=== PATIENT | female | born 1935 | race Caucasian/White ===

== ENCOUNTER → 2016-02-22 | Outpatient (CLI) | payer MEDICARE, BC ==
[2016-02-22 14:43] LABS: ALT 49 U/L (9-52); AST 35 U/L (14-36); Cholesterol 159 mg/dL (<200); HDL Cholesterol 71 mg/dL (40-60); Triglycerides 96 mg/dL (<150)
== END | disposition home or self-care (01) ==
LOC: LABWHC1 13:30
PROVIDERS: ATTEND Internal Medicine Cardiovascular Disease
DX: E78.2 Mixed hyperlipidemia (principal)
CPT/HCPCS: 36415; 80061; 84450; 84460

== ENCOUNTER → 2016-10-25 | Outpatient (CLI) | payer MEDICARE, BC ==
[2016-10-25 11:38] LABS: Potassium 4.3 mmol/L (3.5-5.1); Total Bilirubin 0.9 mg/dL (0.2-1.3); Total Protein 7.7 g/dL (6.3-8.2); Uric Acid 7.8 mg/dL (3.7-7.4)
[2016-10-25 16:14] LABS: Basophils % (A) 1 %; CH 32.4; CHCM 34.7; Eosinophils # (A) 0.1 k/uL (0-0.7); Eosinophils % (A) 2 %; HCT 39.7 % (34.0-46.0); HDW 2.65; HGB 14.1 gm/dL (11.4-16.0); Luc # (Auto) 0.13; Luc % (Auto) 2; Lymphocytes # (A) 2.6 k/uL (1.0-4.8); Lymphocytes % (A) 42 %; MCH 33.4 pg (25.0-35.0); MCHC 35.6 g/dL (31.0-37.0); MCV 93.9 fL (80.0-100.0); Mean Platelet Volume 7.8; Monocytes # (A) 0.4 k/uL (0-1.0); Monocytes % (A) 6 %; Neutrophils # (A) 2.9 k/uL (1.3-7.7); Neutrophils % (A) 47 %; RBC 4.23 m/uL (3.80-5.40); WBC 6.2 k/uL (3.8-10.6); WBC (Perox) 6.08
[2016-10-25 18:58] LABS: Hemoglobin A1C 6.7 % (4.2-6.1)
== END | disposition home or self-care (01) ==
LOC: LABWHC1 10:18
PROVIDERS: ATTEND Internal Medicine Critical Care Medicine
DX: E55.9 Vitamin D deficiency, unspecified (principal); M10.9 Gout, unspecified; I10 Essential (primary) hypertension; E11.9 Type 2 diabetes mellitus without complications; I25.10 Atherosclerotic heart disease of native coronary artery without angina pectoris
CPT/HCPCS: 36415; 80053; 80061; 82306; 82550; 83036; 84439; 84443; 84481; 84550; 85025

== ENCOUNTER → 2016-11-23 | Outpatient (CLI) | payer MEDICARE, BC ==
[2016-11-23 12:18] LABS: Bilirubin, Delta 0.3 mg/dL (0.0-0.2); Total Bilirubin 0.5 mg/dL (0.2-1.3)
== END | disposition home or self-care (01) ==
LOC: LABWHC1 11:03
PROVIDERS: ATTEND Internal Medicine Critical Care Medicine
DX: R79.89 Other specified abnormal findings of blood chemistry (principal)
CPT/HCPCS: 36415; 80076

== ENCOUNTER 2017-10-13 17:42 | Observation (INO) | payer MEDICARE, BC ==
[2017-10-13 18:08] LABS: Basophils % (A) 0 %; Eosinophils # (A) 0.2 k/uL (0-0.7); Eosinophils % (A) 3 %; HCT 37.4 % (34.0-46.0); HGB 12.7 gm/dL (11.4-16.0); Lymphocytes # (A) 2.4 k/uL (1.0-4.8); Lymphocytes % (A) 43 %; MCH 31.2 pg (25.0-35.0); MCHC 33.9 g/dL (31.0-37.0); Mean Platelet Volume 7.2; Monocytes # (A) 0.3 k/uL (0-1.0); Monocytes % (A) 5 %; Neutrophils # (A) 2.6 k/uL (1.3-7.7); Neutrophils % (A) 47 %; Platelet Count 132 k/uL (150-450); RBC 4.07 m/uL (3.80-5.40); RDW 13.3 % (11.5-15.5); WBC 5.6 k/uL (3.8-10.6)
--- NOTE | 2017-10-13 18:11 | XR ---
EXAMINATION TYPE: XR chest 2V DATE OF EXAM: 10/13/2017 COMPARISON: 07/24/2015 HISTORY: Chest pain TECHNIQUE: Frontal and lateral views of the chest are obtained. FINDINGS: Heart is normal. Lungs are clear of consolidation. Thoracic aorta is atheromatous. There a re chest leads. Diaphragm is normal. Bony thorax appears intact. IMPRESSION: Atheromatous aorta. No active cardiopulmonary disease. Normal heart. Inspiration is impr dayron compared to old exam.
[2017-10-13 18:13] LABS: Creatine Kinase 46 U/L (30-135)
--- NOTE | 2017-10-13 18:13 | ED ---
General Adult HPI - General Chief complaint: Chest Pain Stated complaint: Chest Pain Time Seen by Provider: 10/13/17 17:43 Source: patient, EMS, RN notes reviewed, old records reviewed Mode of arrival: EMS Limitations: no limitations - History of Present Illness Initial comments: This is an 81-year-old female the ER for evasive chest pain left-sided chest pain. Patient has no known history of heart disease. CT chest. Patient took nitro with no help. Patient states pain while here in the emergency room is mildly improved she has no shortness of breath no diaphoresis and anxiety he does have history of angina high blood pressure high cholesterol. She has had prior heart catheterization although unsure of when her results. - Related Data Home Medications Medication Instructions Recorded Confirmed Aspirin EC [Ecotrin Low Dose] 81 mg PO DAILY 08/01/13 07/23/14 Atenolol [Tenormin] 50 mg PO QAM 08/01/13 07/23/14 Citalopram Hydrobromide [CeleXA] 20 mg PO HS 08/01/13 07/23/14 Cyanocobalamin [Vitamin B-12] 500 mcg PO DAILY@1200 08/01/13 07/22/14 Isosorbide Mononitrate [Imdur] 30 mg PO QAM 08/01/13 07/23/14 Magnesium Oxide [Mag-Ox] 500 mg PO DAILY 08/01/13 07/22/14 Mometasone Furoate [Nasonex Nasal 17 gm NS DAILY 08/01/13 07/22/14 [place]] Omeprazole [PriLOSEC] 20 mg PO AC-BRKFST 08/01/13 07/23/14 Ranitidine HCl [Zantac] 75 mg PO BID 08/01/13 07/23/14 Atenolol 25 mg PO HS 07/22/14 07/23/14 Cholecalciferol [Vitamin D3] 2,000 unit PO DAILY@1200 07/22/14 07/22/14 Nitroglycerin Sl Tabs [Nitrostat] 0.4 mg SL DIRECTED PRN 07/22/14 07/22/14 diphenhydrAMINE [Benadryl] 25 mg PO BID 07/22/14 07/23/14 predniSONE 20 mg PO TID 07/22/14 07/23/14 amLODIPine BESYLATE [Norvasc] 07/23/14 07/23/14 Simvastatin [Zocor] 40 mg PO HS 07/24/14 07/24/14 amLODIPine [Norvasc] 5 mg PO HS 07/24/14 07/24/14 Allergies Allergy/AdvReac Type Severity Reaction Status Date / Time doxycycline Allergy Unknown Verified 10/13/17 17:45 doxycycline calcium Allergy Unknown Verified 10/13/17 17:45 [From Vibramycin] doxycycline hyclate Allergy Unknown Verified 10/13/17 17:45 [From Vibramycin] doxycycline monohydrate Allergy Unknown Verified 10/13/17 17:45 [From Vibramycin] Iodinated Contrast- Oral and Allergy Unknown Verified 10/13/17 17:45 IV Dye [Iodinated Contrast Media - IV Dye] Penicillins Allergy Unknown Verified 10/13/17 17:45 shellfish derived Allergy Unknown Verified 10/13/17 17:45 venom-honey bee Allergy Unknown Verified 10/13/17 17:45 [bee venom (honey bee)] MOLD Allergy Cough. Uncoded 10/13/17 17:45 NASAL CONGESTION. Review of Systems ROS Statement: Those systems with pertinent positive or pertinent negative responses have been documented in the HPI. ROS Other: All systems not noted in ROS Statement are negative. Past Medical History Past Medical History: Coronary Artery Disease (CAD), Chest Pain / Angina, GERD/ Reflux, Hyperlipidemia, Hypertension, Thyroid Disorder Additional Past Medical History / Comment(s): Diverticulitis History of Any Multi-Drug Resistant Organisms: None Reported Past Surgical History: Tubal Ligation Additional Past Surgical History / Comment(s): RIGHT Carotid endarterectomy 1999 TUBE IMPLANTS. D&C. PARTIAL THYROIDECTOMY. CATARACTS BILATERAL. LEFT SALPINGOOPHERECTOMY. Past Anesthesia/Blood Transfusion Reactions: No Reported Reaction Past Psychological History: No Psychological Hx Reported Smoking Status: Former smoker Past Alcohol Use History: None Reported Past Drug Use History: None Reported - Past Family History Mother Family Medical History: No Reported History General Exam Limitations: no limitations General appearance: alert, in no apparent distress Head exam: Present: atraumatic, normocephalic, normal inspection Eye exam: Present: normal appearance, PERRL, EOMI. Absent: scleral icterus, conjunctival injection, periorbital swelling ENT exam: Present: normal exam, mucous membranes moist Neck exam: Present: normal inspection. Absent: tenderness, meningismus, lymphadenopathy Respiratory exam: Present: normal lung sounds bilaterally. Absent: respiratory distress, wheezes, rales, rhonchi, stridor Cardiovascular Exam: Present: regular rate, normal rhythm, normal heart sounds. Absent: systolic murmur, diastolic murmur, rubs, gallop, clicks GI/Abdominal exam: Present: soft, normal bowel sounds. Absent: distended, tenderness, guarding, rebound, rigid Extremities exam: Present: normal inspection, full ROM, normal capillary refill. Absent: tenderness, pedal edema, joint swelling, calf tenderness Back exam: Present: normal inspection Neurological exam: Present: alert, oriented X3, CN II-XII intact Psychiatric exam: Present: normal affect, normal mood Skin exam: Present: warm, dry, intact, normal color. 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 ] Respiratory 18 18 Rate Blood Pressure 171/75 138/62 O2 Sat by Pulse 98 98 Oximetry - Reevaluation(s) Reevaluation #1: 10/13/17 18:37 Patient is in no acute distress remains currently without chest pain Reevaluation #2: 10/13/17 18:37 Medical records thoroughly reviewed EKG Findings - EKG Comments: EKG Findings:: EKG shows sinus rhythm rate of 74, NM 1.4, QRS and QTc 461 Medical Decision Making - Medical Decision Making 82 female the ER for evaluation, positive chest pain history of chest pain CAD will admit for cardiac observation - Lab Data Result diagrams: 10/13/17 17:55 10/13/17 17:55 Lab Results 10/13/17 10/13/17 10/13/17 Range/Units 17:55 17:55 17:55 WBC 5.6 (3.8-10.6) k/uL RBC 4.07 (3.80-5.40) m/uL Hgb 12.7 (11.4-16.0) gm/dL Hct 37.4 (34.0-46.0) % MCV 92.0 (80.0-100.0) fL MCH 31.2 (25.0-35.0) pg MCHC 33.9 (31.0-37.0) g/dL RDW 13.3 (11.5-15.5) % Plt Count 132 L (150-450) k/uL Neutrophils % 47 % Lymphocytes % 43 % Monocytes % 5 % Eosinophils % 3 % Basophils % 0 % Neutrophils # 2.6 (1.3-7.7) k/uL Lymphocytes # 2.4 (1.0-4.8) k/uL Monocytes # 0.3 (0-1.0) k/uL Eosinophils # 0.2 (0-0.7) k/uL Basophils # 0.0 (0-0.2) k/uL PT (9.0-12.0) sec INR (<1.2) APTT (22.0-30.0) sec Sodium 139 (137-145) mmol/L Potassium 4.5 (3.5-5.1) mmol/L Chloride 104 (98-107) mmol/L Carbon Dioxide 26 (22-30) mmol/L Anion Gap 9 mmol/L BUN 25 H (7-17) mg/dL Creatinine 1.00 (0.52-1.04) mg/dL Est GFR (CKD-EPI)AfAm 60 (>60 ml/min/1.73 sqM) Est GFR (CKD-EPI)NonAf 52 (>60 ml/min/1.73 sqM) Glucose 140 H (74-99) mg/dL Calcium 9.1 (8.4-10.2) mg/dL Magnesium 2.2 (1.6-2.3) mg/dL Total Bilirubin 0.5 (0.2-1.3) mg/dL AST 43 H (14-36) U/L ALT 49 (9-52) U/L Alkaline Phosphatase 73 (38-126) U/L Total Creatine Kinase 46 (30-135) U/L CK-MB (CK-2) 0.5 (0.0-2.4) ng/mL CK-MB (CK-2) Rel Index 1.1 Troponin I <0.012 (0.000-0.034) ng/mL Total Protein 6.9 (6.3-8.2) g/dL Albumin 4.1 (3.5-5.0) g/dL Lipase 123 (23-300) U/L 10/13/17 Range/Units 17:55 WBC (3.8-10.6) k/uL RBC (3.80-5.40) m/uL Hgb (11.4-16.0) gm/dL Hct (34.0-46.0) % MCV (80.0-100.0) fL MCH (25.0-35.0) pg MCHC (31.0-37.0) g/dL RDW (11.5-15.5) % Plt Count (150-450) k/uL Neutrophils % % Lymphocytes % % Monocytes % % Eosinophils % % Basophils % % Neutrophils # (1.3-7.7) k/uL Lymphocytes # (1.0-4.8) k/uL Monocytes # (0-1.0) k/uL Eosinophils # (0-0.7) k/uL Basophils # (0-0.2) k/uL PT 9.9 (9.0-12.0) sec INR 1.0 (<1.2) APTT 21.6 L (22.0-30.0) sec Sodium (137-145) mmol/L Potassium (3.5-5.1) mmol/L Chloride (98-107) mmol/L Carbon Dioxide (22-30) mmol/L Anion Gap mmol/L BUN (7-17) mg/dL Creatinine (0.52-1.04) mg/dL Est GFR (CKD-EPI)AfAm (>60 ml/min/1.73 sqM) Est GFR (CKD-EPI)NonAf (>60 ml/min/1.73 sqM) Glucose (74-99) mg/dL Calcium (8.4-10.2) mg/dL Magnesium (1.6-2.3) mg/dL Total Bilirubin (0.2-1.3) mg/dL AST (14-36) U/L ALT (9-52) U/L Alkaline Phosphatase (38-126) U/L Total Creatine Kinase (30-135) U/L CK-MB (CK-2) (0.0-2.4) ng/mL CK-MB (CK-2) Rel Index Troponin I (0.000-0.034) ng/mL Total Protein (6.3-8.2) g/dL Albumin (3.5-5.0) g/dL Lipase (23-300) U/L - Radiology Data Radiology results: report reviewed (Chest x-rays negative for acute disease), image reviewed Critical Care Time Critical Care Time: Yes Total Critical Care Time: 31 Disposition Clinical Impression: Chest pain Disposition: ADMITTED IP TO THIS HOSP Condition: Undetermined Instructions: Chest Pain (ED) Is patient prescribed a controlled substance at d/c from ED?: No Referrals: Adali Moon MD [Primary Care Provider] - 1-2 days
[2017-10-13 18:15] LABS: Albumin 4.1 g/dL (3.5-5.0); Calcium 9.1 mg/dL (8.4-10.2); Magnesium 2.2 mg/dL (1.6-2.3); Potassium 4.5 mmol/L (3.5-5.1); Total Bilirubin 0.5 mg/dL (0.2-1.3); Total Protein 6.9 g/dL (6.3-8.2)
[2017-10-13 18:19] LABS: Partial Thromboplastin Time 21.6 sec (22.0-30.0); Prothrombin Time 9.9 sec (9.0-12.0)
[2017-10-13 18:26] LABS: Creatine Kinase MB 0.5 ng/mL (0.0-2.4); Troponin I <0.012 ng/mL (0.000-0.034)
[2017-10-13] MEDS ORDERED: HEPARIN SODIUM,PORCINE 5,000 UNIT/ML 1 ML VIAL IV PRN (18:35)
[2017-10-13] MEDS ORDERED: NITROGLYCERIN SL TABS 0.4 MG TAB SUBLINGUAL PRN (18:35)
[2017-10-13] MEDS ORDERED: HEPARIN SODIUM,PORCINE 5,000 UNIT/ML 1 ML VIAL IV ONE (18:35)
[2017-10-13] MEDS ORDERED: HEPARIN SOD,PORK IN 0.45% NACL 25,000 UNIT in 0.45% NACL 1 500ML.BAG IV SCH (18:45)
[2017-10-13 20:09] VITALS: RESP 16
[2017-10-14 01:16] LABS: Mean Platelet Volume 7.3; Platelet Count 121 k/uL (150-450)
[2017-10-14 01:38] LABS: Creatine Kinase 46 U/L (30-135)
[2017-10-14 01:52] LABS: Creatine Kinase MB 0.5 ng/mL (0.0-2.4); Troponin I <0.012 ng/mL (0.000-0.034)
[2017-10-14 02:05] LABS: Cholesterol 156 mg/dL (<200); HDL Cholesterol 69 mg/dL (40-60); LDL Cholesterol,Calculated 48 mg/dL (0-99); Triglycerides 193 mg/dL (<150)
--- NOTE | 2017-10-14 08:21 | HP ---
HISTORY AND PHYSICAL CHIEF COMPLAINT: Chest pain. HISTORY OF PRESENT ILLNESS: This 82-year-old woman with a past medical history of multiple medical problems including CAD, history of chest pain, GERD, hypertension, hyperlipidemia, syncope, history of diverticulitis, being followed by Dr. Moon in the outpatient setting was complaining of chest pain while watching TV. The pain is felt in the anterior part of the chest and left-sided of the chest without radiation, without any associated symptoms and diaphoresis, sweating and palpitation. The patient apparently had some mild stress also according to her. There is no history of fever, rigors, or chills. No history of headache, loss consciousness or seizures. The troponins are negative and EKG on admission showed no acute changes also. PAST MEDICAL HISTORY: History of CAD, history of chest pain, GERD, hypertension, hyperlipidemia, hypothyroidism, history of syncope, history of tubal ligation, depression. MEDICATIONS: Prior to admission home medications include: 1. Prednisone 20 mg p.o. t.i.d. 2. Benadryl 25 mg p.o. b.i.d. 3. Norvasc 5 mg p.o. q.h.s. 4. Zocor 40 mg q.h.s. 5. Zantac 75 mg p.o. b.i.d. 6. Prilosec 20 mg a.c. breakfast. 7. Nitrostat 0.4 sublingual p.r.n. 8. Nasonex 17 g. Daily. 9. Magnesium oxide 500 mg b.i.d. 10.Imdur 30 mg q.a.m. 11.Vitamin B2 500 mcg p.o. daily. 12.Celexa 20 mg q.h.s. 13.Vitamin D3 2000. 14.Tenormin 50 mg q.a.m. 16.Aspirin 81 mg p.o. daily. ALLERGIES: DOXYCYCLINE, IODINATED CONTRAST, PENICILLIN, SHELLFISH, MOLD. FAMILY HISTORY: Family history of memory impairment. SOCIAL HISTORY: Previous history of smoking. Occasional alcohol intake. REVIEW OF SYSTEMS: ENT: No diminished vision. No diminished hearing. CARDIOVASCULAR: As mentioned earlier. RESPIRATION no cough. GI: No nausea or vomiting. no dysuria. NERVOUS SYSTEM: No numbness or weakness. ALLERGY/IMMUNOLOGY: No asthma or hay fever. MUSCULOSKELETAL: As mentioned earlier. HEMATOLOGY/ONCOLOGY: No history of anemia. ENDOCRINE: No history of diabetes or hypothyroidism. CONSTITUTIONAL: As mentioned earlier. Dermatology: Negative. Rheumatology: Negative. Psychiatry: As mentioned earlier. PHYSICAL EXAMINATION: GENERAL: The patient is alert and oriented times three. VITAL SIGNS: Pulse is 73, blood pressure 138/70, respiration 16, temperature 97.2, pulse ox 97 percent on room air. HEENT: Conjunctivae normal. Oral mucosa moist. NECK is no jugular venous distention. No carotid bruit. No lymph node enlargement. CARDIOVASCULAR: S1, S2 muffled. No S3, no S4. RESPIRATORY: Breath sounds diminished in the bases. No rhonchi. No crackles. ABDOMEN: Soft, nontender. No mass palpable. No hepatosplenomegaly. LEGS: No edema and no swelling. NERVOUS SYSTEM: Higher functions as mentioned earlier. Moves all four extremities. No focal deficits. Lymphatics: No lymph nodes palpable in the neck, axillae or groin. SKIN: no ulcer, rash or bleeding. LABS: WBC 5.2, hemoglobin 12.7, platelets 132, glucose 140, AST is 43. ASSESSMENT: 1. Chest pain possible unstable angina. 2. Mild thrombocytopenia. 3. History of coronary artery disease. 4. History of gastroesophageal reflux disease. 5. Hypertension. 6. Hyperlipidemia. 8. Hypothyroidism. 9. History of diverticulitis. 10.History of right carotid endarterectomy. 11.History of depression. 12.Remote history of nicotine dependence. RECOMMENDATIONS AND DISCUSSION: In this 82-year-old woman who presented with multiple complex medical issues, we will monitor the patient closely, continue the current medications, management and symptomatic treatment. I recommend unstable angina protocol, repeat labs. Cardiology consultation. Possible stress test. Resume the home medications. Prognosis guarded because of multiple complex medical issues. Further recommendations to follow. A copy of dictation being forwarded to Dr. Moon who is the primary physician. MMODL / IJN: [id number] / ALINE
[2017-10-14] MEDS ORDERED: CHOLECALCIFEROL 1,000 UNIT TAB PO SCH (09:00)
[2017-10-14] MEDS ORDERED: ISOSORBIDE MONONITRATE ER 30 MG TAB.ER.24H PO SCH (09:00)
[2017-10-14] MEDS ORDERED: ATORVASTATIN 80 MG TAB PO SCH (09:00)
[2017-10-14] MEDS ORDERED: ASPIRIN 325 MG TAB PO SCH (09:00)
[2017-10-14] MEDS ORDERED: NON-FORMULARY DRUG (Simvastatin [Simvastatin] 80 MG) PO SCH (09:00)
[2017-10-14] MEDS: MAGNESIUM OXIDE 400 MG TAB PO SCH (10:01)
--- NOTE | 2017-10-14 10:24 | CONS ---
CONSULTATION Mrs. Fernando is an 82-year-old female who is seen for the cardiac evaluation. This patient gives a history that she was watching the TV. She had chest discomfort. The pain was in the left precordial area. It was a dull aching pain. It was not associated with any symptoms of shortness of breath. The pain did not radiate to the arm, neck or jaw. By the time the patient came to the emergency room, pain was improved. This patient has a past history of atypical angina. She had a cardiac catheterization done a few years ago, which showed nonobstructive coronary artery disease. Patient denies any history of exertional chest discomfort. No history of prior myocardial infarction. History of hypertension, hyperlipidemia. The patient had a stress test done in our office a few months ago and that was reported to be normal. HOME MEDICATIONS: Include Tenormin, Imdur, magnesium, Nasonex, Zantac, prednisone, Norvasc 5 mg daily and simvastatin 80 mg daily. REVIEW OF THE SYSTEM: Otherwise unremarkable. PAST MEDICAL HISTORY: Includes a right carotid endarterectomy in 1998, partial thyroidectomy, bilateral cataract surgery, left salpingo-oophorectomy, history of thyroid disorder. PHYSICAL EXAMINATION: At present reveals an 82-year-old female who does not appear to be in any acute distress. The patient's blood pressure is 145/65 mmHg. HEENT examination is negative. NECK: Supple. There is no increase in jugular venous pressure. Both the carotid pulses are felt. There is no bruit. Chest is symmetrical. Heart: The PMI is not felt. First and second heart sounds are normal. There is no evidence of any murmur. Lungs are clinically clear to auscultation and percussion. ABDOMEN: Soft. Liver and spleen are not enlarged. Bowel sounds are heard. Extremities: Peripheral pulses are 2+. EKG shows normal sinus rhythm without any acute ischemic changes. Two sets of troponins are normal. IMPRESSION: Chest pain, angina, unstable angina cannot be entirely excluded. There is no evidence of any acute coronary syndrome. The various treatment options were discussed with the patient. She would like to continue with medical treatment and the patient will be ambulated. If the patient remains chest pain-free, she can be discharged home and we will follow up with a stress test as outpatient. If the stress test shows any significant abnormality, then further evaluation with a cardiac catheterization will be considered. Thank you for this consultation. SHITAL / IJN: [id number] /
--- NOTE | 2017-10-14 12:14 | P.CNPUL ---
History of Present Illness Consult date: 10/14/17 Requesting physician: Kacy Gerard Reason for consult: chest pain Chief complaint: Chest pain History of present illness: This is a very pleasant 82-year-old female patient who follows with Dr. Moon in our office as her primary care physician. She has a history of hypertension, hyperlipidemia, hypothyroidism with history of partial thyroidectomy, diverticulosis, carotid stenosis status post right carotid endarterectomy, former smoker. He is very active. Yesterday she developed some midsternal chest pain that lasted approximately 1 hour. She did try sublingual nitro which did not help. She denied any other associated symptoms. No shortness of breath, diaphoresis, nausea or vomiting. No aggravating factors, no alleviating factors. She states by the time she got to the hospital her pain had subsided and has not recurred. She did have a stress test within the past year with Dr. Mckenzie she reported as normal. Troponins are negative. EKG reveals sinus rhythm with no acute ST or T wave abnormalities. White count 5.6. Hemoglobin 12.7. Platelet count 132,000. Creatinine 1.00. She is seen today in consultation on the observation unit. She is awake and alert in no acute distress. She is feeling back to her baseline. No further pain. She is anxious to go home. She is been afebrile. Continue good O2 saturations in the high 90s on room air. She's been hemodynamically stable. Review of Systems Constitutional: Denies chills, Denies fever Eyes: denies blurred vision, denies decreased vision, denies pain Ears: deny: decreased hearing Ears, nose, mouth and throat: Denies headache, Denies sore throat Cardiovascular: Reports chest pain Respiratory: Denies cough Gastrointestinal: Denies abdominal pain, Denies diarrhea, Denies nausea, Denies vomiting Genitourinary: Denies dysuria, Denies hematuria Musculoskeletal: Denies myalgias Integumentary: Denies pruritus, Denies rash Neurological: Denies numbness, Denies weakness Psychiatric: Denies anxiety, Denies depression Endocrine: Denies fatigue, Denies weight change Hematologic/Lymphatic: Reports as per HPI Allergic/Immunologic: Reports as per HPI Past Medical History Past Medical History: Coronary Artery Disease (CAD), Chest Pain / Angina, GERD/ Reflux, Hyperlipidemia, Hypertension, Syncope, Thyroid Disorder Additional Past Medical History / Comment(s): Diverticulitis, pt stated in past she passed out in mu-ism and about a week later when shopping felt like she was going to pass out again. wore a heart monitor for a month but did'nt find anything on it. History of Any Multi-Drug Resistant Organisms: None Reported Past Surgical History: Heart Catheterization, Tubal Ligation Additional Past Surgical History / Comment(s): RIGHT Carotid endarterectomy 1999 TUBE IMPLANTS. D&C. PARTIAL THYROIDECTOMY. CATARACTS BILATERAL. LEFT SALPINGOOPHERECTOMY. Past Anesthesia/Blood Transfusion Reactions: No Reported Reaction Smoking Status: Former smoker - Past Family History Father Family Medical History: Congestive Heart Failure (CHF) Brother(s) Additional Family Medical History / Comment(s): had 7 brothers only one still alive. "1 -mi, "2 - parkinsons, "3,4 had strokes, "8 chf,"6 dm/renal faliure Sister(s) Additional Family Medical History / Comment(s): pt had 6 sisters only one still alive. 2 sisters -chf, 1 had parkinsons Mother Family Medical History: Memory Impairment Medications and Allergies Home Medications Medication Instructions Recorded Confirmed Type Isosorbide Mononitrate [Imdur] 30 mg PO QAM 08/01/13 10/13/17 History Magnesium Oxide [Mag-Ox] 500 mg PO DAILY 08/01/13 10/13/17 History Omeprazole [PriLOSEC] 20 mg PO AC-SUPPER 08/01/13 10/13/17 History Cholecalciferol (Vitamin D3) 2,000 unit PO DAILY 10/13/17 10/13/17 History [Vitamin D3] Simvastatin 80 mg PO DAILY 10/13/17 10/13/17 History Allergies Allergy/AdvReac Type Severity Reaction Status Date / Time doxycycline Allergy Unknown Verified 10/13/17 17:45 doxycycline calcium Allergy Unknown Verified 10/13/17 17:45 [From Vibramycin] doxycycline hyclate Allergy Unknown Verified 10/13/17 17:45 [From Vibramycin] doxycycline monohydrate Allergy Unknown Verified 10/13/17 17:45 [From Vibramycin] Iodinated Contrast- Oral and Allergy Unknown Verified 10/13/17 17:45 IV Dye [Iodinated Contrast Media - IV Dye] Penicillins Allergy Unknown Verified 10/13/17 17:45 shellfish derived Allergy Unknown Verified 10/13/17 17:45 venom-honey bee Allergy Unknown Verified 10/13/17 17:45 [bee venom (honey bee)] MOLD Allergy Cough. Uncoded 10/13/17 17:45 NASAL CONGESTION. Physical Exam Vitals: Vital Signs Temp Pulse Pulse Pulse Resp BP BP 10/14/17 08:00 77 60 16 10/14/17 07:12 97.6 F 60 16 145/65 10/14/17 04:06 98.4 F 72 16 109/66 10/14/17 04:00 16 10/13/17 23:52 16 10/13/17 23:30 97.7 F 81 16 93/57 10/13/17 20:39 77 73 16 10/13/17 19:45 97.3 F L 73 16 138/70 10/13/17 18:33 68 18 138/62 10/13/17 17:54 77 10/13/17 17:45 97.7 F 75 18 171/75 Pulse Ox 10/14/17 08:00 10/14/17 07:12 99 10/14/17 04:06 97 10/14/17 04:00 10/13/17 23:52 10/13/17 23:30 99 10/13/17 20:39 10/13/17 19:45 97 10/13/17 18:33 98 10/13/17 17:54 10/13/17 17:45 98 Intake and Output 10/13/17 10/14/17 10/14/17 22:59 06:59 14:59 Other: Voiding Method Toilet Toilet Toilet # Voids 1 2 Weight 62.6 kg - Constitutional General appearance: average body habitus, no acute distress - EENT Eyes: EOMI, PERRLA ENT: hearing grossly normal Ears: bilateral: normal - Neck Neck: normal ROM Carotids: left: upstroke delayed Thyroid: negative: normal size - Respiratory Respiratory: bilateral: CTA - Cardiovascular Rhythm: regular Heart sounds: normal: S1, S2 - Gastrointestinal General gastrointestinal: normal bowel sounds - Integumentary Integumentary: normal turgor - Neurologic Neurologic: CNII-XII intact - Musculoskeletal Musculoskeletal: gait normal - Psychiatric Psychiatric: A&O x's 3, appropriate affect, intact judgment & insight Results - Laboratory Findings CBC and BMP: 10/14/17 01:05 10/13/17 17:55 PT/INR, D-dimer PT 9.9 sec (9.0-12.0) 10/13/17 17:55 INR 1.0 (<1.2) 10/13/17 17:55 Abnormal lab findings: Abnormal Labs 10/13/17 10/13/17 10/13/17 17:55 17:55 17:55 Plt Count 132 L APTT 21.6 L BUN 25 H Glucose 140 H AST 43 H Triglycerides HDL Cholesterol 10/14/17 10/14/17 10/14/17 01:05 01:05 01:05 Plt Count 121 L APTT 50.6 H BUN Glucose AST Triglycerides 193 H HDL Cholesterol 69 H 10/14/17 06:58 Plt Count APTT 34.9 H BUN Glucose AST Triglycerides HDL Cholesterol - Diagnostic Findings Chest x-ray: image reviewed Assessment and Plan Assessment: Impression: #1 Acute chest pain without evidence of acute coronary syndrome. #2 Hypertension. #3 Hyperlipidemia. #4 Hypothyroidism with history of partial thyroidectomy. #5 History of diverticulitis. #7 Carotid stenosis with previous right carotid endarterectomy. #8 Remote history of smoking. Plan: The patient was seen and evaluated by Dr. Ferrell. Chest x-ray and labs are current reviewed. The patient is stable from the pulmonary standpoint and could be discharged home once cleared by cardiology. Plans are for outpatient stress testing. She will keep her scheduled appointment with Dr. Moon in our office. She is however encouraged to call sooner with any recurrence of symptoms or other questions or concerns. I, the cosigning physician, performed a history & physical examination of the patient. Lungs sounds are clear. Maintaining good O2 saturations in the 90s on room air. I discussed the assessment and plan of care with my nurse practitioner, Myra Loving. I attest to the above consultation as dictated by her. Time with Patient: Greater than 30
--- NOTE | 2017-10-14 14:09 | ECHOF ---
Referral Reason:chest pain MEASUREMENTS -------- HEIGHT: 160.0 cm WEIGHT: 62.6 kg BP: 109/55 IVSd: 1.0 cm (0.6 - 1.1) LVIDd: 3.9 cm (3.9 - 5.3) LVPWd: 1.1 cm (0.6 - 1.1) EDV(Teich): 68 ml IVSs: 1.3 cm LVIDs: 2.5 cm LVPWs: 1.3 cm %IVS Thck: 33 % ESV(Teich): 22 ml EF(Teich): 67 % %FS: 37 % SV(Teich): 45 ml LA Diam: 3.1 cm (2.7 - 3.8) RVIDd: 2.5 cm (< 3.3) LALs A4C: 4.6 cm LAAs A4C: 14.9 cm LAESV A-L A4C: 41 ml LAESV MOD A4C: 40 ml LALs A2C: 4.6 cm LAAs A2C: 12.4 cm LAESV A-L A2C: 28 ml LAESV MOD A2C: 25 ml LAESV(A-L): 34 ml LAESV Index (A-L): 20.79 ml/m Ao Diam: 2.9 cm (2.0 - 3.7) AV Cusp: 1.7 cm (1.5 - 2.6) MV E Efe: 0.70 m/s MV DecT: 350 ms MV Dec [place]: 2.0 m/s MV A Efe: 1.24 m/s MV E/A Ratio: 0.57 MV PHT: 102 ms AV Vmax: 1.21 m/s AV maxP.82 mmHg TR Vmax: 2.03 m/s TR maxP.56 mmHg RAP: 5.00 mmHg RVSP: 21.56 mmHg FINDINGS -------- Sinus rhythm. This was a technically good study. The left ventricular size is normal. There is borderline concentric left ventricular hypertrophy. Overall left ventricular systolic function is normal with, an EF between 55 - 60 %. The right ventricle is normal in size. Normal LA size by volume 22+/-6 ml/m2. The right atrium is normal in size. There is mild aortic valve sclerosis. The mitral valve leaflets are mildly thickened. Mild mitral annular calcification present. Mild tricuspid regurgitation present. Right ventricular systolic pressure is normal at < 35 mmHg. Trace/mild (physiologic) pulmonic regurgitation. The aortic root size is normal. IVC Not well visulized. There is no pericardial effusion. CONCLUSIONS -------- 1. Sinus rhythm. 2. This was a technically good study. 3. The left ventricular size is normal. 4. There is borderline concentric left ventricular hypertrophy. 5. Overall left ventricular systolic function is normal with, an EF between 55 - 60 %. 6. The right ventricle is normal in size. 7. Normal LA size by volume 22+/-6 ml/m2. 8. The right atrium is normal in size. 9. There is mild aortic valve sclerosis. 10. The mitral valve leaflets are mildly thickened. 11. Mild mitral annular calcification present. 12. Mild tricuspid regurgitation present. 13. Right ventricular systolic pressure is normal at < 35 mmHg. 14. Trace/mild (physiologic) pulmonic regurgitation. 15. The aortic root size is normal. 16. IVC Not well visulized. 17. There is no pericardial effusion. [employer]ILY [employer] ATTORNEY: Milly Downing, JETTCS
[2017-10-14 15:49] VITALS: BP 121/71; PULSE 75; TEMP 98.1
[2017-10-14] MEDS ORDERED: PANTOPRAZOLE 40 MG TABLET PO SCH (17:30)
--- NOTE | 2017-10-14 18:21 | DS ---
DISCHARGE SUMMARY FINAL DIAGNOSES: 1. Chest pain, myocardial infarction ruled out. Possibly musculoskeletal or gastroesophageal reflux disease. 2. Mild thrombocytopenia. 3. History of coronary artery disease. 4. History of gastroesophageal reflux disease. 5. Hypertension. 6. Hyperlipidemia. 7. Hypothyroidism. 8. History of diverticulitis. 9. History of right carotid endarterectomy. 10.History of depression. 11.Remote history of nicotine dependence. DISCHARGE DISPOSITION: The patient is being discharged in stable condition with guarded prognosis. HISTORY OF PRESENT ILLNESS: This 82 -year-old woman with a past medical history of multiple medical problems was admitted with chest pain, myocardial infarction ruled out. Cardiology saw the patient. Cleared the patient for discharge. Outpatient stress test is recommended. The patient is keen on going home as well. On exam, vitals are stable. Cardiovascular S1, S2. Abdomen soft. Nervous system: No focal deficits. I recommend the patient to follow with Cardiology closely. Outpatient stress test. Limited activities. Report to the ER if any recurrence of symptoms. DISCHARGE ADVICE AND MEDICATIONS: 1. Diet is cardiac diet. 2. Activity limited until followup. MEDICATIONS: 1. Vitamin D3 2000 daily. 2. Imdur 30 mg q.a.m. 3. Magnesium oxide 500 mg p.o. daily. 4. Prilosec 20 mg supper. 5. Simvastatin 80 mg p.o. daily. 6. Aspirin 81 mg p.o. daily. 7. Lipitor 20 mg daily. 8. Nitrostat 0.4 mg p.r.n. MMSANDRAL / LAKSHMIN: [id number] /
[2017-10-15] MEDS ORDERED: ATORVASTATIN 40 MG TAB PO SCH (09:00)
== END 2017-10-14 17:13 | disposition home or self-care (01) ==
LOC: EC 17:42 → 3OBS 18:35
PROVIDERS: ADMIT Hospitalist; ATTEND Hospitalist
DX: R07.89 Other chest pain (principal); R07.2 Precordial pain; D69.6 Thrombocytopenia, unspecified; I25.10 Atherosclerotic heart disease of native coronary artery without angina pectoris; K21.9 Gastro-esophageal reflux disease without esophagitis; I10 Essential (primary) hypertension; E78.5 Hyperlipidemia, unspecified; E03.9 Hypothyroidism, unspecified; K57.92 Diverticulitis of intestine, part unspecified, without perforation or abscess without bleeding; F32.9 Major depressive disorder, single episode, unspecified; Z87.891 Personal history of nicotine dependence; I65.29 Occlusion and stenosis of unspecified carotid artery; Z79.82 Long term (current) use of aspirin; Z79.899 Other long term (current) drug therapy; Z88.1 Allergy status to other antibiotic agents; Z91.030 Bee allergy status; Z91.041 Radiographic dye allergy status; Z88.0 Allergy status to penicillin; Z91.013 Allergy to seafood; Z91.048 Other nonmedicinal substance allergy status; Z82.0 Family history of epilepsy and other diseases of the nervous system; Z82.49 Family history of ischemic heart disease and other diseases of the circulatory system; Z83.3 Family history of diabetes mellitus; Z82.3 Family history of stroke
CPT/HCPCS: 36415; 71046; 80053; 80061; 82550; 82553; 83690; 83735; 84484; 85025; 85049; 85610; 85730; 93005; 93306; 96365; 96366; 96376; 99291

== ENCOUNTER → 2021-07-09 | Outpatient (CLI) | payer MEDICARE, BC ==
[~2021-07-09] MED LIST: BEBTELOVIMAB (EUA) 175 MG/2 ML VIAL IV ONE; SODIUM CHLORIDE 0.9% 500 ML 500 ML in EMPTY BAG 1 BAG IV PRN
[2021-07-09 13:43] VITALS: RESP 16; TEMP 98
[2021-07-09 14:37] VITALS: BP 126/67; PULSE 67
== END ==
LOC: PROCWHC3 12:22
PROVIDERS: ATTEND Physician Assistant
DX: U07.1 COVID-19 (principal); N18.9 Chronic kidney disease, unspecified; Z88.1 Allergy status to other antibiotic agents; Z88.0 Allergy status to penicillin; Z91.013 Allergy to seafood; Z91.030 Bee allergy status; Z91.09 Other allergy status, other than to drugs and biological substances; Z87.891 Personal history of nicotine dependence
CPT/HCPCS: Q0222; M0222

== ENCOUNTER → 2023-02-22 | Outpatient (CLI) | payer MEDICARE, BC | END | disposition home or self-care (01) | LOC: LABWHC1 11:03 | PROVIDERS: ATTEND Internal Medicine Critical Care Medicine | DX: U07.1 COVID-19 (principal) | CPT/HCPCS: 87636 ==